=== PATIENT | female | born 1975 | race Caucasian/White ===

== ENCOUNTER → 2016-09-27 | Outpatient (CLI) | payer MEDICAID ==
[~2016-09-27] MED LIST: ALLO300T2 PO; ASPI81CH43 PO; ATOR20TA PO; CLOT1CRE78; DOBUTamine 1000MCG/ML 250 ML IV ONE; DOBUTamine 1000MCG/ML 250 ML IV SCH; ENAL5TAB92 PO; FLUO10CA15 PO; FURO40TA4 PO; GAB400C PO; GLYB2.5T76 OR; HYDR-2595; LEVO25TA6 PO; LORA1TAB12 PO; METF-316 PO; METO25TA5 PO; METO5TAB56 OR; OMEP20TA44 OR; OXYC10TA44 PO; POTASSIUM OR; SENN-126 PO; [UNRECOGNIZED DRUG - CODE]
[2016-09-27 16:10] VITALS: BP 126/76
== END | disposition home or self-care (01) ==
LOC: CHF HDHVI 13:50
PROVIDERS: ATTEND Internal Medicine Cardiovascular Disease
DX: I11.0 Hypertensive heart disease with heart failure (principal); I50.9 Heart failure, unspecified
CPT/HCPCS: 93306; 96374; G0463; J1250; 96365